=== PATIENT | female | born 1960 | race Caucasian/White ===

== ENCOUNTER 2017-04-17 15:53 | Inpatient (IN) | payer MEDICARE, OTHER ==
[~2017-04-17] VITALS: Ht 162.6 cm; Wt 149.7 kg
[~2017-04-17 15:53] MED LIST: COUMADIN5 MG PO; DICLOFENAC SODI75 MG PO; DOC-Q-LACE100 MG PO; DURAGESIC1 EAC2 TD; ESOMEPRAZOLE MA40 MG PO; FENTANYL1 EAC2 TD; GABAPENTIN300 MG PO; JANTOVEN5 MG PO; LEVOTHYROXINE50 MCG PO; OXYCODONE HCL5 MG PO; PERCOCET 10-321 EACH PO; REFRESH CLASSI1 EACH OU; ROBAXIN500 MG PO; SERTRALINE HCL100 MG PO; TRAZODONE HCL150 MG PO; [UNRECOGNIZED DRUG - OTHER] PO
--- NOTE | 2017-04-17 16:23 | NUR ---
PT ARRIVED TO ROOM 109 AT 1610. PT IN GOWN. LR WITH STRAIGHT TUBING READY. MALIA CORNELL ATTEMPTING TO PLACE IV NOW. BILAT SURGICAL BOOTS REMOVED. GLASSES ON FACE. OTHER BELONGINGS IN DENTURE CUP AT BEDSIDE. CELL PHONE AND BANK CARDS AT BEDSIDE. PT ALERT AND ORIENTED.
--- NOTE | 2017-04-17 16:59 | NUR ---
iv started in RH 20g by Ale CORNELL. LR with straight tubing hooked up to pt. faxed order for Vanco to Pharmacy and called [facility] to get order filled. Pt up to BSC now to void. SCDs on. Anesthetists here to get patient. Reviewing chart.
--- NOTE | 2017-04-17 17:07 | NUR ---
1707 pt off floor to OR with Landy Reyes
--- NOTE | 2017-04-17 18:27 | NUR ---
04/17/171826 Shirley Louis PT COMES INTO CCU RECOVERY ON VENT. RESPIRATORY THERAPY AND SOFTWARE APPLICATIONS DEVELOPER AT THE BEDSIDE.
--- NOTE | 2017-04-17 19:30 | NUR ---
FULL REPORT GIVEN BY KRISTINE PSYCHIATRIC LPN. ALL QUESTIONS ANSWERED.
--- NOTE | 2017-04-17 19:35 | NUR ---
RESP THERAPY IN ROOM TO REVALUATE PT DUE TO DESAT TO 79%. PT PLACE ON DIFFERENT NASAL CANULA WITH CO2 DETECTOR AT 5L. PT NOW SATING IN LOW 90'S.
--- NOTE | 2017-04-17 19:44 | NUR ---
PT IV SITE INTACT, NO REDNESS OR SWELLING NOTED, FLUIDS INFUSING EASILY. PT SLEEPY, OPENS EYES TO VERBAL STIMULATION UNABLE TO ANSWER QUESTIONS, WILL FOLLOW COMMANDS. PT VITALS WNL. ICE PACK TO LATERAL SIDE OF LEFT ANKLE, ALL DRESSING IN PLACE, NO NOTED DRAINAGE OR SHADOWING NOTED. TOES ON LEFT FOOT ARE PINK AND WARM. HOB ELEVATED TO 30 DEGREES. PULSES PALPABLE IN ALL OTHER LIMBS.
--- NOTE | 2017-04-17 20:23 | NUR ---
PT BLADDER SCANNED FOR 28 ML IN BLADDER.
--- NOTE | 2017-04-17 21:20 | NUR ---
PT SLEEPING SOUNDLY AT THIS TIME, APPEARS TO BE COMFORTABLE, NO GRIMACING OR JAW CLENCHING NOTED. VITALS ARE WNL. PT O2 SATS ARE MAINTAINING AT 90-92% ON 4L NC. LEFT ANKLE HAS ICE PACK IN PLACE, NO DRAINAGE OR SHADOWING NOTED.
--- NOTE | 2017-04-17 21:43 | NUR ---
ICE PACK REPLACED ON LEFT ANKLE. PT O2 TURNED DOWN TO 3L VIA NC PT O2 SATS AT 94%.
--- NOTE | 2017-04-17 23:05 | NUR ---
PT AWAKE AND ALERT. SPEAKING VERY CLEARLY, PT STATES "I AM STARTING TO HAVE WITHDRAWLS FROM PAIN MEDICATION" PT APPEARS ANXIOUS. GAVE PT PO PAIN MEDICAITON, SHE STATES "IT'S GOING TO GET REAL BAD PRETTY SOON". WHEN ASKED PT WHAT SHE TAKES AT HOME FOR PAIN, PT STATES "I USUALLY TAKE 10 MG OF OXY". BROUGHT PT ADDITIONAL PO OXYCODONE. PT APPEARED TO BE MUCH MORE REASURED AND CALM AFTER HER PAIN MEDICATION CONCERNS WERE ADDRESSED. ICE PACK ON LEFT ANKLE, DRESSING C/D/I.
--- NOTE | 2017-04-17 23:13 | NUR ---
PT STATES "I AM SO HOT, I NEED AIR MOVEMENT!". REMOVED BLANKETS OFF PT AND TURNED ROOM TEMP DOWN. PT DENIES SOB, AND NAUSEA.
--- NOTE | 2017-04-17 23:14 | NUR ---
PT DENIES THE NEED TO URINATE.
--- NOTE | 2017-04-18 00:30 | NUR ---
REPORT RECEIVED FROM ERNIE CORNELL. PT IS SLEEPING AT THIS TIME, RESP EVEN AND UNLABORED. HR 70 AND RR 10 WITH SPO2 97% ON 2L/O2. ICE PACKS ON LEFT ANKLE, AND CMS INTACT.
--- NOTE | 2017-04-18 02:00 | NUR ---
PT UP TO BSC TO VOID 600ML YELLOW URINE, CASTRO STANDING AND PIVOTING WELL, BACK TO BED.
--- NOTE | 2017-04-18 02:40 | NUR ---
8MG PO DILAUDID GIVEN FOR 8/10 LEFT ANKLE PAIN.
--- NOTE | 2017-04-18 03:23 | NUR ---
PT AWAKE IN BED WATCHING TV.
--- NOTE | 2017-04-18 04:30 | NUR ---
PT SLEEPING, WILL DEFER ASSESSMENT SO PT CAN SLEEP. VSS, RESP EVEN AND UNLABORED.
--- NOTE | 2017-04-18 07:45 | NUR ---
BEDSIDE REPORT COMPLETE. PT UP TO BEDSIDE COMMODE TO VOID AND THEN TO CHAIR. PT TO BED. ABLE TO MOVE AND NOT BEAR WEIGHT ON LT LEG. CMS INTACT TO LT FOOT. VITALS AND ASSESSMENT DONE. PT WAITING TO ORDER BREAKFAST AND STATED PAIN UNDER CONTROL FOR NOW.
--- NOTE | 2017-04-18 08:51 | OR ---
[facility] [address], [place] [address] Signed DATE OF OPERATION: 07/18/2017 SURGEON: Chioma Nichols M.D. PREOPERATIVE DIAGNOSIS: Infected hardwire draining sinus, left ankle. POSTOPERATIVE DIAGNOSIS: Infected hardwire draining sinus, left ankle. PROCEDURE PERFORMED: Removal of hardware with irrigation and debridement of skin, subcutaneous tissue, and bone. HAND I TUBE BENDER: Millie Melo PA-C. Millie was present for the entirety of the surgery and was critical positioning, retraction, and wound closure and dressing application. ANESTHESIA: General. BLOOD LOSS: 100 mL. The plate and screws removed laterally. BRIEF HISTORY: Martha is a 56-year-old female who was seen in her clinic in [place] where the draining sinus was noted to be from the inferior aspect of the wound. 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 She was started on oral antibiotics, but she continued to develop fevers and chills and presented to my clinic this afternoon with temperature of 102. It was elected to admit her to the hospital and go ahead and remove the hardware and debride the wound. Risks, benefits, and alternatives were discussed with her and she elected to proceed. DESCRIPTION OF PROCEDURE: Once consent was obtained, she was taken to the operating room. After adequate anesthesia, she was placed on the operating table, all downside pressure points were well padded. The leg was prepped and draped in standard sterile fashion and incised. The draining sinus at the inferior aspect of the wound was removed sharply. The dissection was carried through subcutaneous tissue, and directly down onto the plate. The soft tissue scar was split longitudinally. The plate was easily identified. The screws were then removed and the plate was removed uneventfully. The inferior 4 screw holes were soft and were debrided using the curet. The wound was then copiously irrigated with antibiotic solution under pulse lavage. The wound was then closed with 2-0 nylon and dressed with Mepilex AG dressing, ABD and a bulky Silva cotton dressing. She tolerated the procedure well. All sponge, needle, Electronically Signed By: CHIOMA NICHOLS MD 04/18/17 0851 PATIENT NAME: AILEEN PAULSON Tyler OPERATIVE REPORT DATE OF : 58 PHYSICIAN: CHIOMA NICHOLS MD REPORT #: [id number] REPORT IS CONFIDENTIAL AND NOT TO BE RELEASED WITHOUT AUTHORIZATION [address] [address] Signed and instrument counts were correct. Chioma Nichols M.D. / [id number] P P Electronically Signed By: CHIOMA NICHOLS MD 04/18/17 0851 PATIENT NAME: AILEEN PAULSON OPERATIVE REPORT DATE OF : 58 PHYSICIAN: CHIOMA NICHOLS MD REPORT #: [id number] REPORT IS CONFIDENTIAL AND NOT TO BE RELEASED WITHOUT AUTHORIZATION
--- NOTE | 2017-04-18 09:30 | NUR ---
DR PHAM INTO SEE PT. PLAN FOR OUTPATIENT ANTIBIOTICS DISCUSSED. DR CARMICHAEL CALLED TO CONSULT FOR MEDICAL MANAGEMENT. PT RESTING. ENCOURAGED USE OF INCENTIVE SPIROMETER AND PT DID WELL. SATS REMAIN 97%. MONITOR REMOVED. PT TO BE TRANSFERRED TO MEDICAL FLOOR.
--- NOTE | 2017-04-18 11:00 | NUR ---
REPORT CALLED TO SANDIE CORNELL ON MEDICAL FLOOR. PT GIVEN DILAUDID 8 MG PO FOR PAIN AND THEN PT UP TO BEDSIDE COMMODE TO VOID AND THEN TO CHAIR. PT TAKEN TO MEDICAL FLOOR.
--- NOTE | 2017-04-18 11:11 | NUR ---
PT ARRIVED TO ROOM 109 ON MED SURG UNIT AT 1100. PT IN RECLINER WITH LEGS ELEVATED. LEFT ANKLE WRAPPED WELL. VSS. IV SL. 2L 02 VIA IN. PAIN 8/10 GENERALIZED AND IN LEFT ANKLE. PRN PAIN MED GIVEN BEFORE TRANSFER TO ROOM BY GRECIA CORNELL.
--- NOTE | 2017-04-18 12:11 | NUR ---
PT IS RESTING IN BED SAFELY WITH CALL LIGHT IN REACH. PT FINISHED LUNCH ADN ASKED FOR THE TV REMOTE AND GUIDE.
--- NOTE | 2017-04-18 13:43 | NUR ---
MED REC COMPLETE WITH [facility] [employer] REFILL HISTORY AND PATIENT INTERVIEW. PATIENT IS CONCERNED THAT SHE IS NOT RECEIVING HER HOME MEDICATIONS SPECIFIALLY HER LEVOTHYROXINE. PATIENT HAS A FENTANYL PATCH THAT SHE STATES IS DUE 04/19/17.
--- NOTE | 2017-04-18 13:49 | NUR ---
PATIENT UP TO VOID AT COMMODE WITH 1 ASSIST.
--- NOTE | 2017-04-18 13:51 | NUR ---
PT USED BSC AND IS NOW RESTING IN BED WITH CALL LIGHT IN REACH PT ASKED FOR MORE ICE WATER.
--- NOTE | 2017-04-18 16:09 | NUR ---
pt getting PICC line placed by Cathy CORNELL now. X-ray taken to verify placement at 1605.
--- NOTE | 2017-04-18 16:55 | NUR ---
PICC LINE CONFIRMED TO BE IN PROPER PLACEMENT VIA X-RAY.
--- NOTE | 2017-04-18 17:24 | NUR ---
TRANSFER FROM CCU THIS MORNING. 2L 02 CHRONIC NC. 1PA TO TRANSFER. NON-WEIGHT BEARING LEFT ANKLE. NEW PICC TODAY. VANCO X6 WKS. DILAUDID 8MG X2. ZOFRAN X1.
--- NOTE | 2017-04-18 18:08 | NUR ---
ASKED BY DR. PHAM TO EVALUTE PATIENT FOR POTENTIAL PICC LINE PLACEMENT. AFTER REVIEWING THE CHART AND INTERVIEWING THE PATIENT, NO ABSOLUTE CONTRAINDICATIONS WERE NOTED. PATIENT WAS ABLE TO SIGN INFORMED CONSENT. PATIENT'S RIGHT ARM WAS EVALUTED AND THE BASILIC VEIN WAS NOTED TO BE GREATER THAN 8 FR BY SITE ANNA U/S. THIS VEIN WAS ACCESSED ON THE 2ND ATTEMPT AND THE GUIDEWIRE WAS EASILY ADVANCED INTO THE VEIN. 4FR SINGLE LUMENT PICC WAS USED. PICC LINE WAS TRIMMED TO 50 CM AND 6 CM WERE LEFT EXPOSED. PATIENT WAS EDUCATED ON THIS PICC LINE AND ENCOURAGED TO ASK QUESTIONS REGARDING HER PICC. APPROVAL FOR PICC LINE WAS GIVEN BY DR. LAI SELLERS. REPORT GIVEN TO KRAIG HOOPER ON MED/SURG.
--- NOTE | 2017-04-18 20:26 | NUR ---
THERMODYNAMICS TEACHER ASSISTED PT UP TO CHAIR, ASSIST OF ONE. TOLERATED UP FOR APPROX 10 MIN, REQUESTED PAIN MED, RECEIVED. ABLE TO USE CALL LIGHT.
--- NOTE | 2017-04-18 21:43 | NUR ---
PT RECIEVED A NEW BARIATRIC BED TODAY PER REQUEST. PT NOW IS REQUESTING A DIFFERENT BED BECAUSE "ITS TOO HARD TO GET BACK INTO, ITS TOO HIGH." RN AND UTILITY SYSTEMS REPAIRER OPERATOR FIGURED OUT HOW TO DEFLATE THE MATTRESS SO THAT THE BED IS LOWER AND EASIER FOR PT TO GET BACK INTO, PT REPORTED SHE IS OKAY WITH THIS BED NOW. PT SAT IN RECLINER CHAIR FOR APPROXIMATLY 10-15 MINUTES AND THEN PIVOT TRANSFERED WITH FWW AND 1P ASSIST TO BED, TOLERATED WELL. PT RATED PAIN AT 9/10, GIVEN DILAUDID PO FOR PAIN. DRESSING IS CLEAN DRY AND INTACT. GOOD CAP REFILL TO LEFT TOES. ALL DR PHAM ORDERS ARE IN PLACE. CALL LIGHT IN REACH. FRESH WATER AT BEDSIDE. NO FURTHER NEEDS.
--- NOTE | 2017-04-18 22:00 | NUR ---
PT APPEARS TO BE SLEEPING. RR WNL AND UNLABORED. LIGHTS OUT, TV OFF IN ROOM.
--- NOTE | 2017-04-19 00:12 | NUR ---
PT APPEARS TO BE SLEEPING. LIGHTS AND TV OFF IN ROOM.
--- NOTE | 2017-04-19 02:26 | NUR ---
PT REMAINS ASLEEP. GOOD CAP REFILL ON PT'S LEFT TOES. LIGHTS OFF AND TV ON IN ROOM.
--- NOTE | 2017-04-19 04:49 | NUR ---
PT INCONTINENT IN BED OF URINE. PT NOW ON BSC. COMPLETE BED CHANGE COMPLETED.
--- NOTE | 2017-04-19 05:22 | NUR ---
PT REPORTS "VERY BAD PAIN," RATES IT AT "8-9"/10, GAVE DILAUDID PO FOR PAIN. PT ALERT AND ORIENTED X4. VANCO HUNG AND INFUSING INTO PICC WNL. PICC FLUSHED AND JERE BACK BLOOD WELL.
--- NOTE | 2017-04-19 05:43 | NUR ---
PT HAD UNEVENTFUL NIGHT. SLEPT MAJORITY OF SHIFT. 1-2 PERSON ASSIST. MAKE SURE TO DEFLATE MATTRESS BEFORE ASSISTING PT TO HER BED DUE TO BED BEING TO TALL FOR PT. DRESSING IS CLEAN DRY AND INTACT. GOOD CAP REFILL ON SURGICAL TOES. ICE TO AFFECTED ANKLE. TEDS AND HEEL PROTECTOR IN PLACE. INCENTIVE SPIROMETER AT BEDSIDE. DILAUDID PO FOR PAIN. IV ABX. NON-WEIGHT BARRING, PT DOES WELL WITH PIVOT TRANSFER, FOLLOWS DIRECTIONS WELL. PICC LINE WNL, FLUSHES AND DRAWS BLOOD WELL. NO NAUSEA OVERNIGHT. ALERT AND ORIENTED X4, DRY DEMEANOR. PT USES CALL LIGHT.
--- NOTE | 2017-04-19 07:27 | NUR ---
BEDSIDE REPORT RECEIVED FROM ASSOCIATE PROFESSOR COMPUTER SCIENCE RN USING 5 P'S. PT SLEEPING IN BED. O2 ON AT 2 L. IV ABX INFUSING WITHOUT DIFFICUTLY. NO S/S DISTRESS. RESP EVEN, UNLABOURED. CALL LIGHT IN REACH.
--- NOTE | 2017-04-19 08:30 | NUR ---
AM MEDS AND ASSESSMENT DONE. PT DENIES NEEDS. ENCOURAGED TO COUGH/DEEP BREATHE D/T DIM LUNGS. DRESSING TO L LEG INTACT. PULSES INTACT. CALL LIGHT IN REACH. PT WATCHING TV. GIVEN 10 MG OXYCODONE FOR 8 PAIN.
--- NOTE | 2017-04-19 11:19 | NUR ---
PT SLEEPING. NO S/S DISTRESS. CALL LIGHT IN REACH. O2 ON AT 3 L NC.
--- NOTE | 2017-04-19 13:44 | NUR ---
PT AWAKE AND ALERT IN BED. ASSISTED TO ORDER LUNCH. PT DENIES NEEDS. CALL LIGHT IN REACH.
--- NOTE | 2017-04-19 14:26 | NUR ---
BARREL FILLER IN WITH PTFadumo
--- NOTE | 2017-04-19 16:16 | NUR ---
Patient refused shower today but will take a bed bath tomorrow.
--- NOTE | 2017-04-19 17:16 | NUR ---
PT HAS HAD UNEVENTFUL SHIFT. RECEIVED PAIN MEDS X 3. 1-2 PERSON ASSIST WITH FWW TO BSC. O2 @ 3L. IV VANCO. TOLERATING REGULAR DIET. PICC LINE FLUSHES, DRAWS BLOOD WELL. CALLS APPROPRIATELY.
--- NOTE | 2017-04-19 19:50 | NUR ---
PT SITTING UP IN BED, WATCHING TV. ALERT AND ORIENTED X4, TALKATIVE, PLEASENT. PT RATED PAIN AT 8/10 IN LEFT LEG, "ITS JUST CONSTANT THROBBING," GAVE OXYCODONE PO FOR PAIN. DRESSING IS CLEAN DRY AND INTACT, GOOD CAP REFILL TOES ARE WARM, PT ABLE TO WIGGLE TOES. VANCO FINISHED INFUSING WNL. PICC DRAWS BLOOD AND FLUSHES WELL. TEDS, SCD, HEEL PROTECTOR IN PLACE. ICE TO LEFT ANKLE. PT HAS NO OTHER COMPLAINTS AT THIS TIME. FRESH ICE WATER AT BEDSIDE. CALL LIGHT IN REACH.
--- NOTE | 2017-04-19 20:10 | NUR ---
PT UP TO BSC, 1P ASSIST, TOLERATED TRANSFER WELL.
--- NOTE | 2017-04-19 21:15 | NUR ---
PT CONTINUES TO RATE PAIN AT 8/10 IN HER LEFT ANKLE. GAVE DILAUDID PER PT REQUEST. PT WIDE AWAKE AT THE MOMENT, SITTING UP IN BED, WATCHING TV. VERY TALKATIVE.
--- NOTE | 2017-04-19 23:25 | NUR ---
PT SLEEPING, RR WNL AND UNLABORED. LIGHTS OUT, TV ON IN ROOM.
--- NOTE | 2017-04-20 01:49 | NUR ---
PT UP TO BSC, TOLERATED TRANSFER TO AND FROM BED WELL. NO FURTHER NEEDS. CALL LIGHT IN REACH.
--- NOTE | 2017-04-20 02:46 | NUR ---
PT SOURAV DENISE.
--- NOTE | 2017-04-20 05:54 | NUR ---
PT HAD UNEVENTFUL NIGHT, SLEPT MAJORITY OF SHIFT. DRESSING IS CLEAN DRY AND INTACT, TOES ON LEFT FOOT HAVE GOOD CAP REFILL. PT PIVOT TRANSFERS TO BSC WITH 1P ASSIST AND FWW, TOLERATES NON-WEIGHT BEARING WELL. PT ALERT AND ORIENTED X4, PLEASENT DEMEANOR. USES CALL LIGHT APPROPRIATLY.
--- NOTE | 2017-04-20 07:20 | NUR ---
BEDSIDE HANDOFF REPORT RECEIVED FROM INSTITUTIONAL RESEARCH COORDINATOR RN. PT RESTING IN BED. MD TO BEDSIDE, DRESSING CHANGE, ORDER TO WEAR WALKING BOOT WHEN AMBULATING. PT DENIES NEEDS AT THIS TIME.
--- NOTE | 2017-04-20 09:15 | NUR ---
PT RESTING IN BED. PT SLEEPY BUT AROUSABLE. PT LUNG SOUNDS CLEAR WITH DIMINISHED BASES, ON 3L NC, O2 SATS 95%. PT BOWEL TONES ACTIVE, DENIES NAUSEA. PT WITHE EDEMA TO BILATERAL LOWER LEG. LEFT ANKLE DRESSING ABD AND GAUZE, CDI. PT TOLRATING REGULAR DIET. PT WITH PICC LINE TO [facility], DRESSING INTACT, HEPARIN LOCKED. PT REQUESTING TO USE BSC, WALKING BOOT USED, PT ABLE TO STAND PIVOT WITH SBA AND FWW. PT DENIES NEEDS AT THIS TIME.
--- NOTE | 2017-04-20 10:01 | NUR ---
PT REQUESTING PAIN MEDICATION FOR PAIN 06/01 TO LEFT ANKLE. GIVEN 8 MG PO DILAUDID. PT DENIES OTHER NEEDS AT THIS TIME.
--- NOTE | 2017-04-20 12:45 | NUR ---
PT RESTING COMFORTABLY IN BED. PT REQUESTING PAIN MEDICATION, GIVEN 10 MG PO OXYCODONE. PT LUNG SOUNDS CLEAR, DIMINISHED BASES, ON 3L NC, O2 SATS 96%. PT BOWEL TONES ACTIVE, HAD BM TODAY, DENIES NAUSEA. PT CAP REFILL <3 SECONDS ON BILATERAL LOWER EXTREMITIES, GENERALIZED EDEMA UNCHANGED. PT REFUSING COMPRESSION STOCKING, EDUCATED PT ON PURPOSE OF STOCKING. PT REQUESTING TO USE RESTROOMJEROME ASSUST WITH FWW TO BSC. PT ASSISTED BACK TO BED. PT DENIES NEEDS OTHER NEEDS AT THIS TIME.
--- NOTE | 2017-04-20 15:03 | NUR ---
NURSE AIDE ASSISTIGN PT TO SHOWER. PT STATES PAIN TOLERABLE AT THIS TIME. PT DENIES NEEDS.
--- NOTE | 2017-04-20 16:01 | NUR ---
PT REQUESTING PAIN MEDICATION. GIVEN 8 MG PO DILAUDID. PT RATING PAIN 8/10 TO LEFT ANKLE. PT GIVEN 10 MG COUMADIN PER ORDER, INR 1.5, MICHELLE RN SECOND RN VERIFICATION. PT DENIES NEEDS AT THIS TIME.
--- NOTE | 2017-04-20 16:33 | NUR ---
VANCO TROUGH COLLECTED VIA PICC LINE, 7 ML BLOOD DISCARDED, 4 ML COLLECTED. PICC LINE FLUSHED. PT RESTING COMFORTABLY IN BED. PT DENIES SOB, LUNG SOUNDS CLEAR WITH DIMINISHED BASES, 100% ON 3L NC, WEANED TO 2L. PT DENIES NAUSEA, TOLERATING REGULAR DIET.CMS INTACT, PULSES PALPABLE, CAP REFILL 2SECONDSTO BILATERAL LOWER EXTREMITIES. DRESSING TO L ANKLE CDI. PT REQUESTING TO USE BSC.
--- NOTE | 2017-04-20 17:12 | NUR ---
Helped patient to bedside commode and got warm blanket.
--- NOTE | 2017-04-20 17:51 | NUR ---
IV VANCO INFUSING. PT REQUESTIGN TO USE BSC, ASSISTED. PT DENIES NEEDS AT THIS TIME.
--- NOTE | 2017-04-20 18:23 | NUR ---
PT ALERT/ORIENTED. PT WEANED TO 2L NC, O2 SATS 95%, LUNG SOUNDS CLEAR WITH DIMINISHED BASES. PT TOLERATING REGULAR DIET, DENIES NAUSEA, BOWEL TONES ACTIVE, HD BM TODAY. PT WITH DRESSING TO LEFT ANKLE, CHANGED TODAY BY DR. PHAM, PT TO WEAN WALKING BOOT WHEN OOB. PT 1PA TO BSC WITH FWW. VANCO TROUGH 19.5. PICC LINE PATENT. PAIN CONTOLLED WITH PRN DILAUDID AND OXYCODONE. PT WITH ICE PACK TO BILATERAL ANKLES. PT REFUSING COMPRESSION STOCKINGS.
--- NOTE | 2017-04-20 18:45 | NUR ---
PICC LINE DRESSING PEELING ON EDGES, DRESSING CHANGED, 6 CM EXPOSED. PT RESTING IN BED. PT DENIES NEEDS AT THIS TIME.
--- NOTE | 2017-04-20 19:29 | NUR ---
RECEIVED REPORT FROM DAY SHIFT RN. PATIENT IS RESTING IN BED WATCHING TV. PATIENT IS ON 2L VIA NC. PATIENT IS ON PULSE OX AND READINGS ARE WNL. PATIENT DENIES ANY PAIN AT THIS TIME. CALL LIGHT IS WITHIN REACH.
--- NOTE | 2017-04-20 21:31 | NUR ---
PATIENT ASSESMENT COMPLETED. PATIENT GIVEN PRN PAIN MEDICATION PER ORDER FOR 8/10 PAIN IN HER LEFT ANKLE. PATIENT ASSISTED TO THE USE THE BEDSIDE COMMODE. PATIENT IS A 1PA W/WALKER. PATIENT TOLERATED ACTIVITY WELL. PATIENT REFUSES TO WEAR SCDS, TEDHOSE, OR HEEL PROTECTORS. PATIENT EDUCATED ON THE IMPORTANCE OF THESE INTERVENTIONS. PATIENT CONTINUES TO REFUSE INTERVENTIONS. PATIENT IS ON 2L VIA NC AND THIS IS CHRONIC FOR PATIENT. PATIENT IS ON A REG DIET AND TOLERATING IT WELL. PATIENT IS NOW BACK IN BED WATCHING TV. PATIENT DENIES ANY FURTHER NEEDS. CALL LIGHT IS WITHIN REACH.
--- NOTE | 2017-04-20 23:17 | NUR ---
PATIENT ASSISTED TO THE RESTROOM. PATIENT IS A 1PA W/WALKER. PATIENT RATES PAIN AT A 3/10. PATIETN DENIES THE NEED FOR ANY PAIN MEDICATION. PATIENT IS NOW BACK IN BED RESTING AND WATCHING TV. PATIENT DENIES ANY NEEDS AT THIS TIME. CALL LIGHT IS WITHIN REACH.
--- NOTE | 2017-04-21 00:59 | NUR ---
PATIENT ASSISTED TO THE RESTOOM. PATIENT IS A 1PA W/WALKER. PATIENT TOLERATED ASCTIVITY WELL. PATIENT IS NOW BACK IN BED WATCHING TV. PATIENT RATES PAIN AT A 3/10. PATIENT DENIES THE NEED FOR PAIN MEDICATION AT THIS TIME. CALL LIGHT IS WITHIN REACH.
--- NOTE | 2017-04-21 03:13 | NUR ---
PATIENT CONTINUES TO RESTIN IN BED WTIH EYES CLOSED ON HER BACK. PATIENTS BREATHING IS EVEN AND UNLABORED, RR 17. PATIENTS PULSE OX READINGS ARE WNL. CALL LIGHT IS WITHIN REACH.
--- NOTE | 2017-04-21 05:13 | NUR ---
PATIENT GIVEN MORNING MEDICATIONS PER ORDER. PATIENT RATES PAIN AT A 2/10. PATIENT DENIES THE NEED FOR ANY PAIN MEDICATION AT THIS TIME. PATIENTS BLOOD JERE FROM PICC LINE AND SENT TO LAB PER ORDER. PATIENTS PICC HAS GOOD BLOOD RETURN. PATIENT DENIES ANY FURTHER NEEDS AT THIS TIME CALL LIGHT IS WITHIN REACH.
--- NOTE | 2017-04-21 06:11 | NUR ---
PATIENT RESTED WELL DURING THE LATRER PART OF THE SHIFT. PATIENT RECEIVED PRN PAIN MEDICATION X1. PATIENT IS ON A REG DIET AND TOLERATING IT WELL. PATIENT IS ON A PULSE OX AND 2L VIA NC WHICH IS CHRONIC. PATIENT IS A 1PA W/WALKER AND TOLERATES AMBULATION WELL. WEHN PATIENT IS OUT OF BED PATIENT IS REQUIRED TO WEAR A BOOT ON HER LEFT LEG. PATIENT IS ALLOWED 50% WEIGHT BEARING ON HER LEFT LEG. PATIENT REFUSED TO WEAR TEDHOSE, SCDS, OR HEEL PRTOTECTORS. PATIENT HAS A PICC ON HER RIGHT ARM THAT FLUSHES WELL AND HAS GOOD BLOOD RETURN. PATIENT USES BEDSIDE COMMODE. PATIENT IS AAOX3 AND CALLS APPROPRIATELY.
--- NOTE | 2017-04-21 06:56 | NUR ---
PATIENT ASSISTED TO THE RESTROOM. PATIENT IS A 1PA W/WALKER. PATIENT TOLERATED AMNBULATION WELL. PATIENT IS NOW BACK IN BED RESTING AND WATCHING TV. PATIENT GIVEN PRN PAIN MEDICATION FOR 8/10 PAIN INHER LEFT LEG. PATIENT DENIES ANY FURTHER NEEDS AT THIS TIME. CALL LIGHT IS WITHIN REACH.
--- NOTE | 2017-04-21 07:15 | NUR ---
REPORT RECEIVED FROM TEST OPERATOR RN USING 5 P'S. PT AWAKE AND ALERT. DENIES NEEDS. CALL LIGHT IN REACH. IV ABX COMPLETED FOR MOST RECENT DOSE.
== END 2017-04-21 07:52 | disposition swing bed (61) | DRG 465 ==
LOC: MS 15:53 → CCU 18:38 → MS 04-18 11:15
PROVIDERS: ADMIT Specialist
PROC: 0SBG0ZZ Excision of Left Ankle Joint, Open Approach (ICD-10-PCS; 2017-04-18)
PROC: 0JBR0ZZ Excision of Left Foot Subcutaneous Tissue and Fascia, Open Approach (ICD-10-PCS; 2017-04-18)
PROC: 02HV33Z Insertion of Infusion Device into Superior Vena Cava, Percutaneous Approach (ICD-10-PCS; 2017-04-18)
PROC: 0SPG04Z Removal of Internal Fixation Device from Left Ankle Joint, Open Approach (ICD-10-PCS; principal; 2017-04-18 15:00)
DX: T84.629A Infection and inflammatory reaction due to internal fixation device of unspecified bone of leg, initial encounter (principal); M79.7 Fibromyalgia; S82.892A Other fracture of left lower leg, initial encounter for closed fracture; B95.62 Methicillin resistant Staphylococcus aureus infection as the cause of diseases classified elsewhere
CPT/HCPCS: 01480; 36415; 36556; 71010; 80048; 80053; 80202; 82247; 82465; 83605; 83615; 84100; 84478; 84550; 85025; 85610; 86140; 94002; 94762; 97110; 97530; C1751; G8978; G8979; J0330; J1100; J1885; J2250; J2405; J2704; J2765; J3010; J3370; J7060

== ENCOUNTER 2017-04-21 07:52 | Inpatient (IN) | payer MEDICARE, OTHER ==
[~2017-04-21] VITALS: Ht 162.6 cm; Wt 149.7 kg
[2017-05-02] MEDS ORDERED: OXYCODONE HCL5 MG PO (09:06)
[2017-05-02] MEDS ORDERED: HYDROMORPHONE HC4 MG PO (09:06)
[2017-05-02] MEDS ORDERED: FENTANYL1 EAC2 TD (09:06)
--- NOTE | 2017-05-08 09:57 | DS ---
[facility] [address] [place], [place] [address] Signed ADMISSION DIAGNOSIS: Infection, postoperative left ankle, status post removal of hardware. PROCEDURE PERFORMED: Left hardware removal. PICC line placement. BRIEF HISTORY: Martha is a 56-year-old female, who had undergone uncomplicated ORIF of her ankle, but developed drainage from the wound, which was MRSA. She had undergone extensive treatment without resolution and her ankle was healing, so we elected to remove the hardware. She was taken to the operating room, underwent the above procedure, she tolerated this well. We placed a PICC line for IV vancomycin. She was discharged to Swing Bed for continued rehab and IV antibiotics. She has done well with these, developing no complications. Pain has been well controlled and her wound has healed. She has requested a transfer to the Swing Bed in [place] which is close to h [facility] and family. We will discharge her there with continued rehab and IV antibiotics. She will follow up with me in 7-10 days. Should she have any problems in the interim, she will notify me immediately. Chioma Nichols MD BA/[place] /[id number] Electronically Signed By: CHIOMA NICHOLS MD 05/08/17 0957 PATIENT NAME: AILEEN PAULSON DISCHARGE SUMMARY DATE OF : 58 PHYSICIAN: CHIOMA NICHOLS MD REPORT #: [id number] REPORT IS CONFIDENTIAL AND NOT TO BE RELEASED WITHOUT AUTHORIZATION
== END 2017-05-04 13:25 | DRG 949 ==
LOC: MS 07:52
PROVIDERS: ADMIT Specialist
DX: T84.629D Infection and inflammatory reaction due to internal fixation device of unspecified bone of leg, subsequent encounter (principal); M86.8X7 Other osteomyelitis, ankle and foot; B95.62 Methicillin resistant Staphylococcus aureus infection as the cause of diseases classified elsewhere; J45.909 Unspecified asthma, uncomplicated; K21.9 Gastro-esophageal reflux disease without esophagitis; E78.00 Pure hypercholesterolemia, unspecified; M79.7 Fibromyalgia; Z88.2 Allergy status to sulfonamides; Z79.1 Long term (current) use of non-steroidal anti-inflammatories (NSAID); Z79.891 Long term (current) use of opiate analgesic; Z79.899 Other long term (current) drug therapy
CPT/HCPCS: 80048; 80202; 85610; 94760; 97032; 97110; 97116; 97162; 97530; J3370